=== PATIENT | male | born 1960 | race Caucasian/White ===

== ENCOUNTER 2016-11-10 16:25 | Inpatient (IN) ==
[2016-11-10] MEDS ORDERED: LOPERAMIDE 2 MG CAPSULE PO STA (16:47)
[2016-11-10] MEDS ORDERED: metroNIDAZOLE INJ 500 MG in PREMIX 1 EACH IV STA (16:47)
[2016-11-10] MEDS ORDERED: METOCLOPRAMIDE 10 MG/2 ML VIAL IV STA (16:47)
[2016-11-10] MEDS ORDERED: SODIUM CHLORIDE 0.9% 500 ML IV STA (16:47)
[2016-11-10] MEDS ORDERED: ONDANSETRON 4 MG/2 ML VIAL IV STA (16:47)
[2016-11-10] MEDS ORDERED: PANTOPRAZOLE 40 MG VIAL IV STA (16:47)
--- NOTE | 2016-11-10 16:54 | Emergency Department Note ---
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 Mode of Arrival: Ambulatory Limitations: No Limitations Source: Patient Time Seen by Provider: 11/10/16 16:47 - History of Present Illness HPI Narrative: This 56-year-old white male presents with a two-week history of left upper quadrant crampy abdominal pain associated with continuous nausea and daily loose stools. In association with this, he denies chills, fever, melena, bright red blood per rectum, history of inflammatory bowel disease, history of diverticula and diverticulitis, history of pancreatitis, history of peptic ulcer disease, or history of reflux. During the course of this situation he has had no weight loss but does characterize his loose stools as inevitable after anytime he eats a meal. Prior to these 2 weeks, he has had no history in the past of a dumping syndrome nor has he had any GI surgery in the past. In regards to his left-sided pain, he at no time has he had complaints of chest pain or shortness of breath. Currently he appears in no acute medical distress. Onset (ago): week(s) (Patient presents 2 weeks post onset of symptom) Allergies/Adverse Reactions: Allergies Allergy/AdvReac Type Severity Reaction Status Date / Time No Known Allergies Allergy Unverified 11/10/16 16:32 Review of System - Review of System 12 point system: reviewed and no additional remarkable complaints except as stated - Review of System Constitutional: Present: as per HPI Gastrointestinal: Present: as per HPI Medical,Surgical,& Family Hx - Medical History Rheumatology: History of;: Fibromyalgia - Social History Smoking Status: Current every day smoker Frequency of Alcohol Use: Frequently Type of Drug Use: None Exam Physical Examination: GENERAL: Well developed, well nourished white male in no acute distress. HEENT: Normocephalic. No trauma. Moist mucous membranes. EOMI. PERRLA. ENT NML NECK: Supple. No adenopathy. CARDIAC: Regular. No murmurs. Heart rate 65 CHEST: Clear to auscultation. No respiratory distress. O2 sat 98% ABDOMEN: Soft. Mild left upper quadrant tenderness. Active bowel sounds. EXTREMITIES: No trauma. Normal ROM. No pedal edema. SKIN: No diaphoresis. No rash. NEURO: Alert. Neuro intact. No focal deficits. Vital Signs: Vital Signs Temperature 99.0 F 11/10/16 16:28 Pulse Rate 64 11/10/16 18:45 Respiratory Rate 18 11/10/16 18:45 Blood Pressure 158/99 11/10/16 18:45 O2 Sat by Pulse Oximetry 99 11/10/16 18:45 Course - Reevaluation(s) Reevaluation #1: Advised patient of need for admission given the severity of his pancreatitis. - Consultations Consultation #1: Discussed with the hospitalist service who will admit for further evaluation treatment. Results - Labs CBC & BMP: 11/10/16 16:41 11/10/16 16:41 Labs: I reviewed the laboratory noted the elevated white blood cell count as well as the bump in troponin. Most notable is his extraordinarily elevated lipase of over 9000 with accompanying amylase over 500. - Impressions EKG: Sinus rhythm at 59 with normal ND interval and QRS duration. Normal ST segments. Normal EKG. - Diagnostic Findings Procedure: Abdominal x-ray: image reviewed by me, report reviewed by me ( Diffuse nonspecific gas and feces pattern most consistent with fecal stasis.), CT Abdomen and Pelvis: image reviewed by me, report reviewed by me (Bilateral inguinal hernias, diverticulosis but otherwise unremarkable CT) Disposition Clinical Impression: Acute pancreatitis, Abnormal cardiac enzymes Case discussed with: patient, patient's family Condition: Guarded Time of Disposition: 19:55
[2016-11-10] MEDS ORDERED: LOPERAMIDE 2 MG CAPSULE ONE (16:58)
[2016-11-10] MEDS ORDERED: metroNIDAZOLE 500 MG/100 ML PREMIX IV ONE (16:58)
[2016-11-10] MEDS ORDERED: PANTOPRAZOLE 40 MG VIAL IV ONE (16:59)
[2016-11-10] MEDS ORDERED: ONDANSETRON 4 MG/2 ML VIAL ONE (16:59)
[2016-11-10] MEDS ORDERED: METOCLOPRAMIDE 10 MG/2 ML VIAL ONE (16:59)
[2016-11-10 17:01] LABS: Basophils # 0.1 10*3/uL (0.0-0.2); Basophils % 0.4 % (0.0-0.8); Eosinophils # 0.2 10*3/uL (0.0-0.87); Eosinophils % 1.1 % (0.00-10.9); Hematocrit 47.3 VOL% (42.0-52.0); Immature Granulocytes % 0.4 %; Immature Granulocytes Absolute 0.05 #; Lymphocytes # 2.1 10*3/uL (1.4-4.0); Lymphocytes % 14.9 % (21.2-54.2); Mean Corpuscular HGB Conc 33.8 GM/DL (32-36); Mean Corpuscular Hemoglobin 34 PG (27-34); Monocytes % 7.3 % (1.7-12.7); Neutrophils # 10.8 10*3/uL (1.4-7.4); Neutrophils % 75.9 % (38.7-73.9); Platelet Count 266 T/CUMM (130-400); Red Blood Count 4.78 MC/CUMM (3.8-5.5); Red Cell Distribution Width 13.3 % (9.3-17.3); White Blood Count 14.2 T/CUMM (4-12)
[2016-11-10] MEDS ORDERED: DICYCLOMINE 20 MG/2 ML AMP IM ONE ×2 (17:04→17:16)
[2016-11-10 17:25] LABS: Apearance,Urine CLEAR (Clear); Bilirubin,Urine Negative (Negative); Blood, Urine Negative (Negative); Glucose,Urine (UA) Negative (Negative); Ketones,Urine Negative (Negative); Mucus,Urine Occasional /LPF (Occasional); Nitrite,Urine Negative (Negative); Protein,Urine Negative; RBC,Urine <1 /HPF (0-4); Urine Color Yellow (Yellow); Urine Specific Gravity 1.016 (1.001-1.035); Urine Urobilinogen < 2.0 EU/DL (0.2-1.0); WBC,Urine <1 /HPF (0-6)
[2016-11-10 17:31] LABS: Alanine Aminotransferase 32 U/L (16-61); Albumin 3.3 G/DL (3.4-5.0); Alkaline Phosphatase 75 U/L (45-117); Amylase 522 U/L (25-115); Aspartate Amino Transferase 17 U/L (0-37); Bilirubin,Total < 0.39 MG/DL (0.2-1.0); Blood Urea Nitrogen 16 MG/DL (7-18); Calcium 8.7 MG/DL (8.5-10.1); Glucose 90 MG/DL (74-106); Osmolality,Calculated 283.1 MOS/KG (273-304); Potassium 4.1 MMOL/L (3.5-5.1); Sodium 142 MMOL/L (136-145); Total Protein 6.2 G/DL (6.4-8.3)
--- NOTE | 2016-11-10 17:34 | XRay Report ---
Exam: XR abdomen 2V Date: 11/10/2016 4:48 PM Indication: Abdominal pain Comparison: None Technical: Supine and erect imaging 4 views Findings: Lung bases unremarkable. The liver shadow is intact. Surgical clips in the left upper abdomen. The spleen and renal shadows are obscured. Mild fecal debris is present scattered in the colon. A zipper superimposes the pelvis Bony structures are intact Impression: 1. Previous surgical changes left upper abdomen 2. Nonspecific GI pattern PROCEDURE INTERPRETED AT [facility] DEPARTMENT OF RADIOLOGY Final Report Signed by: Dr. Gil Ohara
[2016-11-10 17:37] LABS: Troponin I Only 0.167 NG/ML (0.00-0.045)
--- NOTE | 2016-11-10 17:37 | EKG Report ---
Stationary ECG Study [facility] ER Test Date: 11/10/2016 5:35:18 PM Pat Name: EVELIO GUADALUPE Department: Room: Gender: M [employer] Technician: : 1960 Requested by: Jesse Villarreal Order Number: [id number] Uri MD: GIBSON LARSON Intervals [place] Rate: 59 P: -8 CA: 149 QRS: 22 QRSD: 85 T: 27 QT: 414 QTc: 413 Interpretive Statements SINUS RHYTHM Electronically Signed On 11-11-16 11:46:44 CDT by GIBSON LARSON [email or web address]
[2016-11-10] MEDS ORDERED: KETOROLAC 30 MG/1 ML VIAL IV STA (17:46)
[2016-11-10] MEDS ORDERED: KETOROLAC 30 MG/1 ML VIAL ONE (17:47)
[2016-11-10] MEDS ORDERED: SODIUM CHLORIDE 0.9% 2,000 ML IV STA (18:05)
[2016-11-10] MEDS ORDERED: HYDROmorphone 2 MG/1 ML VIAL IV STA (18:36)
[2016-11-10] MEDS ORDERED: HYDROmorphone 2 MG/1 ML VIAL ONE (18:37)
--- NOTE | 2016-11-10 19:46 | CT Report ---
Exam: CT abdomen pelvis w con Date: 11/10/2016 5:45 PM Comparison: None Indication: Diarrhea abnormal white blood cell count Total DLP: 1074.2 mGy*cm Technical: Exam was performed with oral contrast. Gastrografin was administered. Images were obtained from the lung bases to the iliac crest continuation through the pelvis with 100 cc of Omnipaque 350 with axial sagittal coronal imaging available for review. Dose reduction was performed with decreasing kv and mA and automated exposure Findings: Lung bases: Bibasilar dependent atelectatic change with possible superimposed infiltrate in the left base. The heart is normal in size. No obvious effusions present. Liver and Spleen: Small tiny cyst adjacent to the gallbladder in the liver measuring less than 5 mm. Hepatic and portal veins are patent. Spleen is unremarkable. Gallbladder and Pancreas: Unremarkable Adrenals: Unremarkable Kidneys: Both kidneys are equally perfused and demonstrate no evidence for obstructive uropathy. Stomach: Incomplete distended with air contrast fluid and debris with some surgical changes along the lateral aspect of the stomach superiorly Retroperitoneum: No enlarged lymph nodes. Aorta and IVC: No obvious aneurysm aorta vessels and IVC are unremarkable. Bowel and Mesentery: There is no evidence for bowel obstruction. Minimal diverticular change present without evidence of diverticulitis or abscess collection. No obvious evidence of appendicitis. Pelvis: Bladder: Incompletely distended with contrast and fluid Fluid: No free fluid identified. Lymph nodes: Fat-containing inguinal canal is present bilaterally. No obvious adenopathy. Pelvic organs: Some calcifications are present extending into the scrotum. Prostate calcifications present. Osseous structures: Degenerative changes thoracolumbar spine. Injection granulomas are present bilaterally. Facet arthropathy is noted. Impression: 1. Minimal diverticulosis without obvious diverticulitis. 2. Previous surgical changes along the lateral aspect stomach 3. Fat-containing bilateral inguinal canal hernias PROCEDURE INTERPRETED AT [facility] DEPARTMENT OF RADIOLOGY Final Report Signed by: Dr. Gil Ohara
[2016-11-10] MEDS ORDERED: ONDANSETRON 4 MG/2 ML VIAL IV PRN (20:21)
[2016-11-10] MEDS: SODIUM CHLORIDE 0.45% 1,000 ML IV SCH (23:03)
[2016-11-10] MEDS: PANTOPRAZOLE 40 MG VIAL IV SCH (23:04)
[2016-11-10] MEDS: HYDROmorphone 2 MG/1 ML VIAL IV PRN (23:16)
[2016-11-10] MEDS: METOCLOPRAMIDE 10 MG/2 ML VIAL IV SCH (23:30)
[2016-11-11] MEDS: SODIUM CHLORIDE 0.45% 1,000 ML IV SCH ×5 (02:58→22:29)
[2016-11-11] MEDS: HYDROmorphone 2 MG/1 ML VIAL IV PRN (03:17)
[2016-11-11] MEDS: METOCLOPRAMIDE 10 MG/2 ML VIAL IV SCH ×3 (05:52→18:34)
[2016-11-11 07:26] LABS: Basophils % 0.3 % (0.0-0.8); Eosinophils # 0.1 10*3/uL (0.0-0.87); Eosinophils % 0.8 % (0.00-10.9); Hematocrit 41.5 VOL% (42.0-52.0); Immature Granulocytes % 0.5 %; Immature Granulocytes Absolute 0.06 #; Lymphocytes # 1.7 10*3/uL (1.4-4.0); Lymphocytes % 12.7 % (21.2-54.2); Mean Corpuscular HGB Conc 33.3 GM/DL (32-36); Mean Corpuscular Hemoglobin 34 PG (27-34); Mean Platelet Volume 10.1 FL (9.6-12.0); Monocytes # 0.9 10*3/uL (0.11-0.8); Monocytes % 6.8 % (1.7-12.7); Neutrophils # 10.5 10*3/uL (1.4-7.4); Neutrophils % 78.9 % (38.7-73.9); Platelet Count 227 T/CUMM (130-400); Red Blood Count 4.11 MC/CUMM (3.8-5.5); Red Cell Distribution Width 13.2 % (9.3-17.3); White Blood Count 13.3 T/CUMM (4-12)
[2016-11-11 07:35] LABS: Hemoglobin 13.8 GM/DL (14.0-18.0)
[2016-11-11 07:55] LABS: Alanine Aminotransferase 27 U/L (16-61); Albumin 2.8 G/DL (3.4-5.0); Alkaline Phosphatase 69 U/L (45-117); Amylase 119 U/L (25-115); Aspartate Amino Transferase 17 U/L (0-37); Blood Urea Nitrogen 9 MG/DL (7-18); Calcium 7.8 MG/DL (8.5-10.1); Glucose 83 MG/DL (74-106); Osmolality,Calculated 280.1 MOS/KG (273-304); Potassium 4.7 MMOL/L (3.5-5.1); Sodium 142 MMOL/L (136-145); Total Protein 5.3 G/DL (6.4-8.3)
--- NOTE | 2016-11-11 08:05 | EKG Report ---
Stationary ECG Study [facility] Test Date: 11/11/2016 8:05 AM Pat Name: EVELIO GUADALUPE Department: Room: 294 Gender: M Rn Hospital: : 1960 Requested by: Jesse Villarreal Order Number: [id number] Reading MD: ANH HU Intervals [place] Rate: 60 P: 30 CA: 151 QRS: 64 QRSD: 89 T: 60 QT: 402 QTc: 402 Interpretive Statements SINUS RHYTHM WITH SINUS ARRHYTHMIA Electronically Signed On 11-11-16 13:44:26 CDT by ANH HU [email or web address]
--- NOTE | 2016-11-11 08:27 | Family Practice History&Phys ---
Assessment and Plan (1) Acute pancreatitis Status: Acute Assessment and plan: 11/11/2016: We will order ultrasound of the upper abdomen. I am going to have surgery to see him as he probably has gallstone pancreatitis. Current Visit: Yes History of Present Illness Chief complaint: Abdominal pain History of present illness: Mr. Glass is a 56 year old male Patient is a 56-year-old white male presented emergency room day of admission with severe upper abdominal pain. Patient states this hit suddenly on the day of admission and is never had anything like this before. Patient had nausea but did not vomit. He has not seen any blood in his stool. Patient states he noticed that he was having abdominal pain after every meal for the preceding week. He had no fever or chills associated with this. Is not really having any dyspepsia. 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 This is his only prior abdominal surgery. He has no history of gallstones and states he drinks beer when he is off work. 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 He states he feels much better this morning and I note a prominent improvement in his amylase and lipase. Home Medications Medication Instructions Recorded Confirmed Type Duloxetine HCl [Duloxetine] 60 mg PO DAILY 11/11/16 11/11/16 History Allergies Allergy/AdvReac Type Severity Reaction Status Date / Time No Known Allergies Allergy Unverified 11/10/16 16:32 - Constitutional Constitutional: Absent: chills, fatigue, fever(s), weakness - EENT Eyes: Absent: blurry vision, loss of vision Ears: Absent: decreased hearing, ear pain Nose, mouth and throat: Absent: dysphagia, nasal congestion, sinus pressure, sore throat - Cardiovascular Cardiovascular: Absent: chest pain at rest, chest pain with activity, orthopnea , palpitations, PND - Respiratory Respiratory: Absent: cough, dyspnea - Gastrointestinal Gastrointestinal: Present: abdominal pain, dyspepsia, nausea. Absent: diarrhea , dysphagia, hematemesis, hematochezia, vomiting - Genitourinary Genitourinary: Absent: dysuria, urinary frequency - Musculoskeletal Musculoskeletal: Absent: arthralgias, back pain - Neurological Neurological: Absent: confusion, focal weakness, numbness, paresthesias - Psychiatric Psychiatric: Absent: confusion, depression - Endocrine Endocrine: Absent: fatigue, polydipsia, polyphagia - Hematologic/Lymphatic Hematologic/Lymphatic: Absent: easy bleeding, easy bruising Medical,Surgical,& Family Hx - Medical History Rheumatology: History of;: Fibromyalgia, Rheumatological Problems (History of Still's disease) Musculoskeletal: History of: Musculoskeletal Problems (still's disease) - Surgical History Abdominal Surgeries: Surgical HX of: Hernia Repair (hiatal hernia repair) - Family History Family History: Reports;: Family Cancer (sister-breast cancer), Family Hypertension (mother), Family Stroke (mother) - Social History Smoking Status: Current every day smoker Frequency of Alcohol Use: Frequently Type of Drug Use: None Exam - Constitutional Vitals: Period Temp Pulse Resp BP Sys/Luna Pulse Ox Last 24 Hr 97.5 F-99.0 F 62-76 16-18 108-176/68-105 92-100 Exam: General: Objective patient is a well-developed white male in no acute distress. Patient is able give an excellent history. He states he feels 100% better from yesterday. HEENT: Pupils equal and reactive to light. Patent nares and airway Neck: No meningismus, adenopathy, thyromegaly. There are no auscultated carotid bruits. Cardiovascular: Regular rhythm. No murmurs or gallops Chest: Clear to auscultation without rales rhonchi wheezes. Abdomen: Abdomen soft with mild epigastric tenderness directly. There is no rebound or guarding tenderness noted. Bowel sounds are normal active. There is no palpable hepatosplenomegaly or masses. Neuro: Cranial nerves intact and DTRs and strength symmetric in all extremities. Dermatologic: No evidence of abnormal lesions or masses. Musculoskeletal: There is no joint swelling or tenderness or deformity. Extremities: There is no calf swelling or tenderness. Results - Labs CBC & BMP: 11/11/16 06:56 11/11/16 06:56 Lab Results: I have reviewed the past 24 hour labs
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
--- NOTE | 2016-11-11 10:47 | Ultrasound Report ---
History: Acute pancreatitis. Elevated lipase Date: 11/11/2016 Study: Abdominal ultrasound limited Comparison exam: March 29, 2008 abdominal ultrasound Real-time ultrasound images are captured and archived. The gallbladder is normal in appearance without gallstones, wall thickening, or abnormal pericholecystic fluid. There is no sonographic Bowman sign. There is no abnormal biliary dilatation. The common bile duct measures 2.4 mm diameter. The right kidney measures 10.9 cm length and is unremarkable. The pancreas is moderately obscured by bowel gas, but is without focal lesion where seen. The liver measures normal in size at 16.3 cm length and is without obvious solid abnormality. Impression: Normal appearance of the gallbladder. No significant abnormality PROCEDURE INTERPRETED AT [facility] DEPARTMENT OF RADIOLOGY Final Report Signed by: Dr. Rachell Antunez
[2016-11-11] MEDS: PANTOPRAZOLE 40 MG VIAL IV SCH ×2 (11:25→22:37)
--- NOTE | 2016-11-11 12:30 | Nuclear Medicine Report ---
Exam: Biliary Scan Date: 11/11/2016 Comparison: Abdominal ultrasound 11/11/2016 Reason: Elevated lipase, acute pancreatitis Technique: The patient was administered 5 mCi of technetium 99m Choletec IV. Images of the right upper quadrant were then acquired over 18 minutes. The patient was then administered 8 ounces of ensure orally with no symptoms. Gallbladder ejection fraction was then calculated. Findings: Satisfactory filling of the gallbladder with no bile duct obstruction. Ejection fraction of 73% at 33 minutes. Impression: Satisfactory filling gallbladder with no bile duct obstruction. Normal ejection fraction of 73% at 33 minutes. PROCEDURE INTERPRETED AT [facility] DEPARTMENT OF RADIOLOGY Final Report Signed by: Dr. Josiane Burton
--- NOTE | 2016-11-11 12:47 | Event Note ---
11/11/2016 1300 hrs Ultrasound of the gallbladder was completed and it basically looks normal with no stones present. HIDA scan also performed that looked normal with an ejection fraction of 73%. I think this would suggest that the elevated amylase and lipase is in the pancreatitis is not due to a gallstone pancreatitis at this time. We can follow the progress of this but certainly there is no evidence that this can be a need for surgery at this time.
[2016-11-11] MEDS: DULoxetine 30 MG CAPSULE PO SCH (15:25)
[2016-11-12] MEDS: SODIUM CHLORIDE 0.45% 1,000 ML IV SCH ×3 (00:21→08:20)
[2016-11-12] MEDS: METOCLOPRAMIDE 10 MG/2 ML VIAL IV SCH ×2 (01:30→06:40)
[2016-11-12 05:07] LABS: Basophils % 0.3 % (0.0-0.8); Eosinophils # 0.2 10*3/uL (0.0-0.87); Eosinophils % 1.2 % (0.00-10.9); Hematocrit 42.8 VOL% (42.0-52.0); Hemoglobin 14.6 GM/DL (14.0-18.0); Immature Granulocytes % 0.6 %; Immature Granulocytes Absolute 0.07 #; Lymphocytes # 1.9 10*3/uL (1.4-4.0); Mean Corpuscular HGB Conc 34.1 GM/DL (32-36); Mean Corpuscular Hemoglobin 34 PG (27-34); Mean Corpuscular Volume 98.6 FL (87-102); Mean Platelet Volume 10.6 FL (9.6-12.0); Monocytes % 7.6 % (1.7-12.7); Neutrophils # 9.5 10*3/uL (1.4-7.4); Neutrophils % 75.3 % (38.7-73.9); Platelet Count 245 T/CUMM (130-400); Red Blood Count 4.34 MC/CUMM (3.8-5.5); Red Cell Distribution Width 12.9 % (9.3-17.3); White Blood Count 12.6 T/CUMM (4-12)
[2016-11-12 05:29] LABS: PT Patient Result 10.9 SECS; Partial Thromboplastin Time 30.2 SECS (0-40)
[2016-11-12 05:51] LABS: Albumin 2.8 G/DL (3.4-5.0); Bilirubin,Total 1.2 MG/DL (0.2-1.0); Calcium 8.6 MG/DL (8.5-10.1); Osmolality,Calculated 279.1 MOS/KG (273-304); Potassium 4.6 MMOL/L (3.5-5.1); Total Protein 5.8 G/DL (6.4-8.3)
--- NOTE | 2016-11-12 07:44 | Discharge Summary ---
Hospital Course - Hospital Course Hospital Course: Patient 56-year-old white male admitted to the emergency room with severe abdominal pain was found to have acute pancreatitis with lipase excess of 9000. This resolved very promptly and his lipase is back to normal this morning. It was my suspicion he may have had gallstone pancreatitis but his LFTs were normal and his ultrasound showed no evidence of cholecystitis. No stones are visualized. Patient was returned to his normal is taking liquids without difficulty. We discussed the MRCP or ERCP and he does not want to proceed with that at this time. I told him certainly return the office promptly if he has recurrence of his pain will make an appointment to see me in 1 month. Diagnosis - Discharge Diagnosis (1) Acute pancreatitis Status: Acute Specialty Discharge - Follow Up or Referrals Discharge Plan - Discharge Data Disposition: Disch To Home/Self Care Condition at Discharge: Stable Discharge Diet: advance to your usual diet Activity: resume usual activities as tolerated Hygiene: no restrictions Weight Bearing at Discharge: full weight bearing Driving: no restrictions Contact your physician if you experience:: fever over 101 - Discharge Medications No Action Duloxetine HCl [Duloxetine] 60 mg PO DAILY - Follow Up or Referral Follow Up: Jose Raul Bush MD [Primary Care Provider] - 1 Month - Forms/Instructions Instructions: Pancreatitis (DC) Exam - Constitutional Vitals: Period Temp Pulse Resp BP Sys/Luna Pulse Ox Last 24 Hr 97.4 F-99.5 F 59-69 16-20 125-143/64-81 90-96 Exam: Objective well-developed gentleman is awake alert and able give a good history this morning. He states is feeling much better and has only a trace of abdominal discomfort. His lipase is slightly elevated at 280 and his amylase is 44. Patient states he is quite hungry Discharge Results Procedures and tests throughout hospitalization: Pending Orders 11/10/16 16:47 C. Diff Toxins A & B Stat Labs on day of discharge: Labs from last 24 hours 11/12/16 11/12/16 11/12/16 03:35 03:35 03:35 WBC 12.6 H RBC 4.34 Hgb 14.6 Hct 42.8 MCV 98.6 MCH 34 MCHC 34.1 RDW 12.9 Plt Count 245 MPV 10.6 Neut % (Auto) 75.3 H Lymph % (Auto) 15.0 L [place] % (Auto) 7.6 Eos % (Auto) 1.2 Baso % (Auto) 0.3 Neut # (Auto) 9.5 H Lymph # (Auto) 1.9 Hudson # (Auto) 1.0 H Eos # (Auto) 0.2 Baso # (Auto) 0.0 Immature Gran % 0.6 Nucleated RBC % 0.0 Immature Gran # 0.07 Nucleated RBCs # 0.00 Immature Plt Fraction 0.0 INR 1.0 PT Patient/Control Mix 10.9 Circ Anticoag PTT 30.2 Sodium 142 Potassium 4.6 Chloride 107 Carbon Dioxide 28 Anion Gap 11.6 BUN 8 Creatinine 0.80 GFR Calculation 117 BUN/Creatinine Ratio 10.00 Glucose 79 Calculated Osmolality 279.1 Calcium 8.6 Total Bilirubin 1.20 H AST 17 ALT 23 Alkaline Phosphatase 71 Total Creatine Kinase CK-MB (CK-2) Troponin I Total Protein 5.8 L Albumin 2.8 L Globulin 3.0 Albumin/Globulin Ratio 0.9 L Amylase 44 Lipase 280.0 D 11/11/16 06:56 WBC RBC Hgb Hct MCV MCH MCHC RDW Plt Count MPV Neut % (Auto) Lymph % (Auto) [place] % (Auto) Eos % (Auto) Baso % (Auto) Neut # (Auto) Lymph # (Auto) Hudson # (Auto) Eos # (Auto) Baso # (Auto) Immature Gran % Nucleated RBC % Immature Gran # Nucleated RBCs # Immature Plt Fraction INR PT Patient/Control Mix Circ Anticoag PTT Sodium 142 Potassium 4.7 Chloride 109 H Carbon Dioxide 28 Anion Gap 9.7 BUN 9 Creatinine 0.70 GFR Calculation 124 BUN/Creatinine Ratio 12.00 Glucose 83 Calculated Osmolality 280.1 Calcium 7.8 L Total Bilirubin 0.40 AST 17 ALT 27 Alkaline Phosphatase 69 Total Creatine Kinase 111 CK-MB (CK-2) 1.7 Troponin I 0.110 H D Total Protein 5.3 L Albumin 2.8 L Globulin 2.5 Albumin/Globulin Ratio 1.1 Amylase 119 H Lipase 657.0 H D DS: Provider Date of admission: 11/10/16 20:19 Primary care physician: Jose Raul Bush MD Attending physician on admission: Jose Raul Bush MD Consults: 11/11/16 08:30 Consult to Physician [CONS] Routine Comment: Consulting Provider: Boo Killian Discharging clinician: Jose Raul Bush MD Expected date of discharge: 11/12/16
[2016-11-12 08:14] VITALS: BP 136/67
[2016-11-12] MEDS: DULoxetine 30 MG CAPSULE PO SCH (08:19)
[2016-11-12] MEDS: PANTOPRAZOLE 40 MG VIAL IV SCH (08:21)
[2016-11-12] MEDS ORDERED: DULOXETINE HCL 60 MG PO SCH (09:00)
== END 2016-11-12 11:26 | disposition home or self-care (01) | DRG 440 ==
LOC: N.ED 16:25 → N.EDINP 20:19 → N.TELEN 21:10
PROVIDERS: ADMIT Family Medicine; ATTEND Family Medicine

== ENCOUNTER 2017-09-07 06:29 | Inpatient (IN) ==
[2017-09-07] MEDS ORDERED: PANTOPRAZOLE 40 MG VIAL IV STA (06:57)
[2017-09-07] MEDS ORDERED: MORPHINE 4 MG/1 ML VIAL IV STA (06:57)
[2017-09-07] MEDS ORDERED: SODIUM CHLORIDE 0.9% 1,000 ML IV STA (06:57)
[2017-09-07] MEDS ORDERED: ONDANSETRON 4 MG/2 ML VIAL IV STA (06:57)
[2017-09-07 07:40] LABS: Basophils # 0.1 10*3/uL (0.0-0.2); Basophils % 0.4 % (0.0-0.8); Eosinophils # 0.2 10*3/uL (0.0-0.87); Eosinophils % 1.5 % (0.00-10.9); Hematocrit 50.7 VOL% (42.0-52.0); Hemoglobin 16.9 GM/DL (14.0-18.0); Immature Granulocytes % 0.6 %; Immature Granulocytes Absolute 0.09 #; Lymphocytes # 1.5 10*3/uL (1.4-4.0); Lymphocytes % 9.4 % (21.2-54.2); Mean Corpuscular HGB Conc 33.3 GM/DL (32-36); Mean Corpuscular Hemoglobin 34 PG (27-34); Mean Corpuscular Volume 103.3 FL (87-102); Monocytes # 1.2 10*3/uL (0.11-0.8); Monocytes % 7.2 % (1.7-12.7); Neutrophils # 12.9 10*3/uL (1.4-7.4); Neutrophils % 80.9 % (38.7-73.9); Platelet Count 223 T/CUMM (130-400); Red Blood Count 4.91 MC/CUMM (3.8-5.5); Red Cell Distribution Width 12.4 % (9.3-17.3)
[2017-09-07 08:11] LABS: Lactic Acid 1.5 MMOL/L (0.4-2.0)
[2017-09-07 08:12] LABS: Albumin 3.4 G/DL (3.4-5.0); Bilirubin,Total 0.9 MG/DL (0.2-1.0); Calcium 8.6 MG/DL (8.5-10.1); Osmolality,Calculated 274.8 MOS/KG (273-304); Potassium 3.9 MMOL/L (3.5-5.1); Total Protein 7.2 G/DL (6.4-8.3)
[2017-09-07] MEDS ORDERED: HYDROmorphone 2 MG/1 ML VIAL IV STA (08:53)
[2017-09-07 08:59] LABS: Apearance,Urine CLEAR (Clear); Bilirubin,Urine Negative (Negative); Blood, Urine Negative (Negative); Glucose,Urine (UA) Negative (Negative); Ketones,Urine Negative (Negative); Mucus,Urine Many /LPF (Occasional); Nitrite,Urine Negative (Negative); Protein,Urine 30 MG/DL; RBC,Urine 1 /HPF (0-4); Squamous Epithelial Cell,Urine Occasional /HPF (0-10); Urine Color Yellow (Yellow); Urine Specific Gravity 1.021 (1.001-1.035); WBC,Urine 1 /HPF (0-6)
[2017-09-07] MEDS ORDERED: NALOXONE 0.4 MG/ML VIAL IV PRN (09:58)
[2017-09-07] MEDS: SODIUM CHLORIDE 0.9% 1,000 ML IV SCH ×2 (11:21→20:48)
[2017-09-07] MEDS: ENOXAPARIN 40 MG/0.4 ML SYRINGE SUBCUT SCH (11:23)
[2017-09-07] MEDS: HYDROmorphone 2 MG/1 ML VIAL IV PRN ×3 (12:47→20:45)
[2017-09-07] MEDS ORDERED: IBUPROFEN 600 MG TABLET PO PRN (16:59)
[2017-09-07] MEDS: DOCUSATE SODIUM 100 MG CAPSULE PO SCH (20:57)
[2017-09-08] MEDS: HYDROmorphone 2 MG/1 ML VIAL IV PRN ×6 (00:40→20:53)
[2017-09-08] MEDS: ONDANSETRON 4 MG/2 ML VIAL IV PRN (00:40)
[2017-09-08] MEDS: SODIUM CHLORIDE 0.9% 1,000 ML IV SCH ×3 (05:20→22:11)
[2017-09-08 06:55] LABS: Albumin 2.5 G/DL (3.4-5.0); Bilirubin,Direct 0.14 MG/DL (0.0-0.20); Bilirubin,Indirect 0.9 MG/DL (0.0-1.0); Total Protein 6.1 G/DL (6.4-8.3)
[2017-09-08 07:07] LABS: Risk Ratio 2.81
[2017-09-08] MEDS: PANTOPRAZOLE 40 MG VIAL IV SCH (08:36)
[2017-09-08] MEDS: ENOXAPARIN 40 MG/0.4 ML SYRINGE SUBCUT SCH (08:38)
[2017-09-08] MEDS: DOCUSATE SODIUM 100 MG CAPSULE PO SCH ×2 (08:41→20:52)
[2017-09-09] MEDS: HYDROmorphone 2 MG/1 ML VIAL IV PRN ×6 (01:54→23:13)
[2017-09-09] MEDS: SODIUM CHLORIDE 0.9% 1,000 ML IV SCH ×3 (06:15→23:16)
[2017-09-09 06:16] LABS: Basophils # 0.1 10*3/uL (0.0-0.2); Basophils % 0.6 % (0.0-0.8); Eosinophils # 0.4 10*3/uL (0.0-0.87); Eosinophils % 3.4 % (0.00-10.9); Hematocrit 39.2 VOL% (42.0-52.0); Immature Granulocytes % 0.5 %; Immature Granulocytes Absolute 0.05 #; Lymphocytes # 1.4 10*3/uL (1.4-4.0); Lymphocytes % 13.7 % (21.2-54.2); Mean Corpuscular HGB Conc 33.9 GM/DL (32-36); Mean Corpuscular Hemoglobin 34 PG (27-34); Mean Corpuscular Volume 99.7 FL (87-102); Mean Platelet Volume 10.6 FL (9.6-12.0); Monocytes # 0.7 10*3/uL (0.11-0.8); Monocytes % 7.1 % (1.7-12.7); Neutrophils # 7.8 10*3/uL (1.4-7.4); Neutrophils % 74.7 % (38.7-73.9); Platelet Count 193 T/CUMM (130-400); Red Blood Count 3.93 MC/CUMM (3.8-5.5)
[2017-09-09 06:18] LABS: Hemoglobin 13.3 GM/DL (14.0-18.0); White Blood Count 10.4 T/CUMM (4-12)
[2017-09-09] MEDS: DOCUSATE SODIUM 100 MG CAPSULE PO SCH ×2 (10:15→21:40)
[2017-09-09] MEDS: PANTOPRAZOLE 40 MG VIAL IV SCH (10:17)
[2017-09-09] MEDS: ENOXAPARIN 40 MG/0.4 ML SYRINGE SUBCUT SCH (10:19)
[2017-09-10] MEDS: HYDROmorphone 2 MG/1 ML VIAL IV PRN ×2 (03:44→08:36)
[2017-09-10] MEDS: ENOXAPARIN 40 MG/0.4 ML SYRINGE SUBCUT SCH (08:28)
[2017-09-10] MEDS: PANTOPRAZOLE 40 MG VIAL IV SCH (08:28)
[2017-09-10] MEDS: DOCUSATE SODIUM 100 MG CAPSULE PO SCH (08:28)
[2017-09-10] MEDS: ONDANSETRON 4 MG/2 ML VIAL IV PRN (08:36)
[2017-09-10] MEDS: SODIUM CHLORIDE 0.9% 1,000 ML IV SCH (08:54)
[2017-09-10 12:12] VITALS: BP 124/80
== END 2017-09-10 15:10 | disposition home or self-care (01) | DRG 440 ==
LOC: N.ED 06:29 → N.EDINP 09:58 → N.2E 11:00
PROVIDERS: ADMIT Family Medicine; ATTEND Family Medicine